=== PATIENT | female | born 1995 | race Caucasian/White ===

== ENCOUNTER 2016-11-11 13:53 | Emergency (ER) | payer BC ==
[~2016-11-11] VITALS: Ht 182.9 cm; Wt 83.9 kg
[2016-11-11 14:10] VITALS: Ht 182.9 cm; Wt 83.9 kg
[2016-11-11] MEDS ORDERED: ONDANSETRON INJ 2 MG/ML 2 ML VIAL IV STA (14:26)
[2016-11-11] MEDS ORDERED: MoRPHine SULFATE 4 MG/ML 1 ML CARP\\VIAL IV STA ×2 (14:26→15:34)
[2016-11-11] MEDS ORDERED: SODIUM CHLORIDE 0.9% 1000ML 1,000 ML IV STA ×3 (14:26→16:59)
[2016-11-11 14:42] VITALS: TEMP 37.3
[2016-11-11] MEDS ORDERED: SERT25TA PO (14:50)
[2016-11-11] MEDS ORDERED: BCPILLS PO (14:50)
[2016-11-11] MEDS ORDERED: SPIR25TA PO (14:50)
--- NOTE | 2016-11-11 14:53 | EMERGENCY ROOM VISIT NOTE ---
History Report prepared by Hiwot: Steffanie Arzola Under the Supervision of: Dr. Phil Garcia M.D. First contact with patient: 14:16 Chief Complaint: URINARY SYMPTOMS Stated Complaint: KIDNEY INFECTION History of Present Illness The patient is a 21 year old white female with a past medical history of recurring UTIs who presents to the ED with a cc of urinary symptoms beginning 5 days ago. Positive fever of 101, chills, nausea, dysuria, urinary frequency. The patient states that she last had a UTI 6 months ago and was on antibiotics. She notes this feels like a usual UTI but she is concerned of her kidneys. Negative vomiting, trauma, recent antibiotics. Source of History: patient Onset: 5 days ago Position: other (urinary) Quality: burning Timing: constant Associated Symptoms: + fevers, + chills, + nausea, + urinary symptoms, No vomiting Review of Systems See HPI for pertinent positives and negatives. A total of ten systems were reviewed and were otherwise negative. Past Medical & Surgical Medical Problems: (1) UTI (urinary tract infection) Family History No pertinent family history stated. Social History Smoking Status: Never Smoker Smokeless Tobacco Use: No Alcohol Use: occasionally Drug Use: none Marital Status: single Housing Status: lives with roommate Occupation Status: [employer] student Current/Historical Medications Scheduled Control Pills ( Control Pills), 1 TAB PO DAILY Levofloxacin (Levaquin), 750 MG PO DAILY Ondasetron Odt (Zofran Odt), 4 MG SL Q6H Sertraline (Zoloft), 25 MG PO QPM Spironolactone (Aldactone), 25 MG PO QPM Scheduled PRN Tramadol (Ultram), 25 MG PO Q4H PRN for Pain Allergies Coded Allergies: Amoxicillin (Unverified Allergy, Intermediate, HIVES, 11/11/16) Penicillins (Unverified Allergy, Intermediate, HIVES, 11/11/16) Physical Exam Vital Signs Date Time Temp Pulse Resp B/P (MAP) Pulse Ox O2 Delivery O2 Flow Rate FiO2 11/11/16 16:55 98 16 102/73 97 Room Air 11/11/16 15:09 108 128/92 11/11/16 14:51 112 11/11/16 14:42 37.3 110 20 152/97 11/11/16 14:10 36.8 96 20 99 Room Air Physical Exam GENERAL: Awake, alert, well-appearing, NAD HENT: Normocephalic, atraumatic. EYES: Normal conjunctiva. Sclera non-icteric. NECK: Supple. No nuchal rigidity. FROM. RESPIRATORY: CTAB, no rhonchi, wheezing, crackles CARDIAC: RRR, no MRG ABDOMEN: Soft, suprapubic tenderness to palpation, BS+ MSK: No chest wall TTP, no LE edema, bilateral CVA tenderness to palpation NEURO: GCS 15, CN 2-12 intact, moves all 4s on command SKIN: No rash or jaundice noted. Medical Decision & Procedures ER Provider Diagnostic Interpretation: Radiology results as stated below per my review and radiologist interpretation: ABDOMEN AND PELVIS CT WITH IV CONTRAST FINDINGS: Mild thickening of the bladder wall. There is also mild urothelial thickening within the right renal collecting system and right ureter. No hydronephrosis. The kidneys enhance normally. No bowel wall thickening or obstruction. The appendix is within normal limits. The uterus and ovaries are unremarkable. No significant pelvic free fluid. No retroperitoneal lymphadenopathy. The liver, gallbladder, pancreas, adrenal glands, and spleen are unremarkable. No fractures within the visualized osseous structures. IMPRESSION: 1. Mild bladder wall thickening which likely represents a cystitis. Recommend correlation with urinalysis. 2. Mild urothelial thickening of the right renal collecting system and right ureter. This is likely due to a pyelitis. The kidneys enhance normally. 3. No hydronephrosis. 4. No bowel wall thickening or obstruction. 5. Normal appendix. Electronically signed by: Michael Jc M.D. 11/11/2016 4:40 PM Dictated Date/Time: 11/11/2016 4:34 PM Laboratory Results 11/11/16 14:53 Red Blood Count 4.71, Mean Corpuscular Volume 89.4, Mean Corpuscular Hemoglobin 29.5, Mean Corpuscular Hemoglobin Concent 33.0, Mean Platelet Volume 10.2, Neutrophils (%) (Auto) 76.7, Lymphocytes (%) (Auto) 12.5, Monocytes (%) (Auto) 10.0, Eosinophils (%) (Auto) 0.4, Basophils (%) (Auto) 0.2, Neutrophils # (Auto ) 10.24, Lymphocytes # (Auto) 1.67, Monocytes # (Auto) 1.34, Eosinophils # (Auto ) 0.05, Basophils # (Auto) 0.03 11/11/16 14:53 Test 11/11/16 14:35 11/11/16 14:53 Urine Color DK YELLOW Urine Appearance CLEAR (CLEAR) Urine pH 6.5 (4.5-7.5) Urine Specific Napoleon 1.006 (1.000-1.030) Urine Protein NEG (NEG) Urine Glucose (UA) NEG (NEG) Urine Ketones NEG (NEG) Urine Occult Blood 1+ (NEG) Urine Nitrite POS (NEG) Urine Bilirubin NEG (NEG) Urine Urobilinogen NEG (NEG) Urine Leukocyte Esterase LARGE (NEG) Urine WBC (Auto) >30 /hpf (0-5) Urine RBC (Auto) 0-4 /hpf (0-4) Urine Hyaline Casts (Auto) 1-5 /lpf (0-5) Urine Epithelial Cells (Auto) 10-20 /lpf (0-5) Urine Bacteria (Auto) 1+ (NEG) Urine Test NEG (NEG) White Blood Count 13.36 K/uL (4.8-10.8) Red Blood Count 4.71 M/uL (4.2-5.4) Hemoglobin 13.9 g/dL (12.0-16.0) Hematocrit 42.1 % (37-47) Mean Corpuscular Volume 89.4 fL (80-100) Mean Corpuscular Hemoglobin 29.5 pg (25-34) Mean Corpuscular Hemoglobin Concent 33.0 g/dl (32-36) Platelet Count 330 K/uL (130-400) Mean Platelet Volume 10.2 fL (7.4-10.4) Neutrophils (%) (Auto) 76.7 % Lymphocytes (%) (Auto) 12.5 % Monocytes (%) (Auto) 10.0 % Eosinophils (%) (Auto) 0.4 % Basophils (%) (Auto) 0.2 % Neutrophils # (Auto) 10.24 K/uL (1.4-6.5) Lymphocytes # (Auto) 1.67 K/uL (1.2-3.4) Monocytes # (Auto) 1.34 K/uL (0.11-0.59) Eosinophils # (Auto) 0.05 K/uL (0-0.5) Basophils # (Auto) 0.03 K/uL (0-0.2) RDW Standard Deviation 40.1 fL (36.4-46.3) RDW Coefficient of Variation 12.4 % (11.5-14.5) Immature Granulocyte % (Auto) 0.2 % Immature Granulocyte # (Auto) 0.03 K/uL (0.00-0.02) Anion Gap 7.0 mmol/L (3-11) Est Creatinine Clear Calc Drug Dose 118.1 ml/min Estimated GFR () 110.4 Estimated GFR (Non- 95.2 BUN/Creatinine Ratio 12.6 (10-20) Calcium Level 9.3 mg/dl (8.5-10.1) Total Bilirubin 0.7 mg/dl (0.2-1) Direct Bilirubin 0.1 mg/dl (0-0.2) Aspartate Amino Transf (AST/SGOT) 12 U/L (15-37) Alanine Aminotransferase (ALT/SGPT) 15 U/L (12-78) Alkaline Phosphatase 80 U/L (45-117) Total Protein 8.6 gm/dl (6.4-8.2) Albumin 3.9 gm/dl (3.4-5.0) Lipase 124 U/L (73-393) Laboratory results reviewed by me Medications Administered Medications (Trade) Dose Ordered Sig/Americo Route Start Time Stop Time Status Last Admin Dose Admin Sodium Chloride 1,000 ml @ 999 mls/hr Q1H1M STAT IV 11/11/16 14:26 11/11/16 15:26 DC 11/11/16 15:08 999 MLS/HR Morphine Sulfate (MoRPHine SULFATE INJ) 4 mg NOW STAT IV 11/11/16 14:26 11/11/16 14:28 DC 11/11/16 15:08 4 MG Ondansetron HCl (Zofran Inj) 4 mg NOW STAT IV 11/11/16 14:26 11/11/16 14:28 DC 11/11/16 15:08 4 MG Ceftriaxone Sodium (Rocephin Inj) 1 gm NOW STAT IV 11/11/16 15:31 11/11/16 15:32 DC 11/11/16 15:43 1 GM Morphine Sulfate (MoRPHine SULFATE INJ) 4 mg NOW STAT IV 11/11/16 15:34 11/11/16 15:36 DC 11/11/16 15:45 4 MG ED Course 1416: The patient was evaluated in room A9. A complete history and physical exam was performed. 1534: The patient is in intense pain. 1705: I reevaluated the patient. She feels well. 1800: I reevaluated the patient. Discussed results and discharge instructions: She verbalized understanding and agreement. The patient is ready for discharge. Medical Decision The patient is a 21 year old white female with a past medical history of recurring UTIs who presents to the ED with a cc of urinary symptoms beginning 5 days ago. Differential diagnosis: Etiologies such as renal colic, appendicitis, diverticulitis, mesenteric ischemia, aortic pathology, infections, inflammatory bowel disease, PUD, biliary pathology, UTI, as well as others were entertained. Patient was seen and evaluated at the bedside. Patient was fairly uncomfortable and bilateral CVA tenderness to palpation. Asians labs that show a mild white count of 13. Patient was mildly tachycardic likely secondary to pain. Patient was given pain medications as well as IV fluids. Patient did have a CT was performed which did not show any obstructing stone and she likely had some inflammation of the kidney and ureter. Patient had no fluid collection concerning for abscess. Patient was afebrile here. Patient is fairly young healthy without any additional risk factors including no history of diabetes or immunosuppressive therapy. Patient looked well appearing upon reassessment. Patient no longer tachycardic. She was able to tolerate multiple glasses of water. Patient was given strict follow-up, discharge, and return precautions. Patient was also given antibiotics prior to discharge and was given a prescription that she was to sweet pickle maker. Patient agreed to and care patient was safely discharged home. Medication Reconcilliation Current Medication List: was personally reviewed by me Blood Pressure Screening Patient's blood pressure: Elevated blood pressure Blood pressure disposition: Elevated BP felt to be situational Impression Primary Impression: Pyelonephritis Additional Impression: Flank pain Scribe Attestation The scribe's documentation has been prepared under my direction and personally reviewed by me in its entirety. I confirm that the note above accurately reflects all work, treatment, procedures, and medical decision making performed by me. Departure Information Dispostion Home / Self-Care Prescriptions Tramadol (Ultram) 50 Mg Tab 25 MG PO Q4H Y for Pain, #14 TAB Prov: Phil Garcia M.D. 11/11/16 Ondasetron Odt (ZOFRAN ODT) 4 Mg Tab 4 MG SL Q6H for Nausea, #6 TAB Prov: Phil Garcia M.D. 11/11/16 Levofloxacin (Levaquin) 500 Mg Tab 750 MG PO DAILY for UTI for 7 Days, #11 TAB Prov: Phil Garcia M.D. 11/11/16 Referrals No Doctor, Assigned (PCP) [facility] Forms HOME CARE DOCUMENTATION FORM, IMPORTANT VISIT INFORMATION Patient Instructions My [facility] Additional Instructions Please return to the emergency department if you have worsening or recurrent symptoms not amenable to at-home treatment. Please call for a follow-up appointment with her primary care physician. Please take your medications as prescribed. If you have other concerns and/or complaints please feel free to also call your primary care physician's office or return the ED for further evaluation, management, and treatment. Please return if you cannot take your medications, develop fevers, or have worsening pain. You received narcotic or benzodiazepene medication while in the emergency room today. This is an addictive medication that may cause drowziness as well as constipation. Do not drive, operate heavy machinery, or drink alcohol under the influence of this medication. Take 400 mg Ibuprofen every 6 hours for 1 day as needed for pain. Take with food. Do not take for more than 1 day as this can cause some kidney problems and upset stomach. Please take tylenol 1000mg every 6 hours for pain. Zofran for nausea. Tramadol only as needed for pain after taking both motrin and tylenol. Take your antibiotics and finish the full course. Culture results are usually available in approx 48 hours You have been examined and treated today on an emergency basis only. This is not a substitute for, or an effort to provide, complete comprehensive medical care. It is impossible to recognize and treat all injuries or illnesses in a single emergency department visit. It is therefore important that you follow up closely with [facility]. Call as soon as possible for an appointment. Thank you for your time and consideration. I look forward to speaking with you again soon. Please don't hesitate to call us if you have any questions. School Instructions Return To School: 1 day Problem Qualifiers
[2016-11-11 14:56] LABS: URINE APPEARANCE CLEAR (CLEAR); URINE BILIRUBIN NEG (NEG); URINE COLOR DK YELLOW; URINE NITRITE POS (NEG); URINE PH 6.5 (4.5-7.5); URINE SPECIFIC GRAVITY 1.006 (1.000-1.030); UROBILINOGEN NEG (NEG); ZZUR CULT IF INDIC CLEAN CATCH YES
[2016-11-11 15:20] LABS: MANUAL MICROSCOPIC REQUIRED? NO; REVIEW REQ? NO
[2016-11-11] MEDS ORDERED: CEFTRIAXONE SOD INJ 1 GM ADDVIAL IV STA (15:31)
[2016-11-11 15:43] LABS: BASO % 0.2 %; BASO ABS # 0.03 K/uL (0-0.2); COMPLETE YES; EOS % 0.4 %; HEMATOCRIT 42.1 % (37-47); IG% 0.2 %; LYMPH % 12.5 %; LYMPH ABS # 1.67 K/uL (1.2-3.4); MEAN CELL VOLUME 89.4 fL (80-100); MEAN CORPUSCULAR HEMOGLOBIN 29.5 pg (25-34); MEAN PLATELET VOLUME 10.2 fL (7.4-10.4); NEUT % 76.7 %; PLATELET COUNT 330 K/uL (130-400); RED BLOOD COUNT 4.71 M/uL (4.2-5.4); WHITE BLOOD COUNT 13.36 K/uL (4.8-10.8)
[2016-11-11 16:04] LABS: BUN/CREATININE RATIO 12.6 (10-20); CALCIUM 9.3 mg/dl (8.5-10.1); CREATININE 0.87 mg/dl (0.60-1.20); POTASSIUM 3.7 mmol/L (3.5-5.1)
--- NOTE | 2016-11-11 16:41 | DIAGNOSTIC IMAGING REPORT ---
ABDOMEN AND PELVIS CT WITH IV CONTRAST CT DOSE: 403.97 mGy.cm HISTORY: Bilateral CVA tenderness. Tachycardia. TECHNIQUE: Multiaxial CT images of the abdomen and pelvis were performed following the use of intravenous contrast. A dose lowering technique was utilized adhering to the principles of ALARA. COMPARISON STUDY: None. FINDINGS: Mild thickening of the bladder wall. There is also mild urothelial thickening within the right renal collecting system and right ureter. No hydronephrosis. The kidneys enhance normally. No bowel wall thickening or obstruction. The appendix is within normal limits. The uterus and ovaries are unremarkable. No significant pelvic free fluid. No retroperitoneal lymphadenopathy. The liver, gallbladder, pancreas, adrenal glands, and spleen are unremarkable. No fractures within the visualized osseous structures. IMPRESSION: 1. Mild bladder wall thickening which likely represents a cystitis. Recommend correlation with urinalysis. 2. Mild urothelial thickening of the right renal collecting system and right ureter. This is likely due to a pyelitis. The kidneys enhance normally. 3. No hydronephrosis. 4. No bowel wall thickening or obstruction. 5. Normal appendix. Electronically signed by: Michael Jc M.D. 11/11/2016 4:40 PM Dictated Date/Time: 11/11/2016 4:34 PM
[2016-11-11] MEDS ORDERED: OPTIRAY 320 IV PRN (16:45)
[2016-11-11] MEDS ORDERED: ONDA4TAB10 SL (17:53)
[2016-11-11] MEDS ORDERED: LEVO-366 PO (17:53)
[2016-11-11] MEDS ORDERED: TRAM-10 PO (17:53)
[2016-11-11] MEDS ORDERED: ONDANSETRON HOME PACK 4MG OD TAB PO ONE (18:30)
[2016-11-11] MEDS ORDERED: TRAMADOL HCL 50 MG HOME PACK PO ONE (18:30)
[2016-11-11 18:33] VITALS: BP 138/85; PULSE 101; O2SAT 98
--- NOTE | 2016-11-13 12:10 | Pharmacy Progress Note ---
ED Pharmacist Culture FollowUp Date of Service: Nov 13, 2016. Patient was sent home with a prescription for levofloxacin, which should cover the E. coli growing from the patient's urine culture.
== END 2016-11-11 18:19 | disposition home or self-care (01) ==
LOC: C.EDB 13:59 → C.EDA 18:19
DX: N12 Tubulo-interstitial nephritis, not specified as acute or chronic (principal); R10.9 Unspecified abdominal pain; Z79.3 Long term (current) use of hormonal contraceptives; Z79.899 Other long term (current) drug therapy; Z87.440 Personal history of urinary (tract) infections